=== PATIENT | male | born 1955 | race Caucasian/White ===

== ENCOUNTER 2023-07-19 09:20 | Outpatient (OUT) | payer BC, SELFPAY ==
[2023-07-19 11:16] LABS: Prostate Specific Antigen Scrn 2.01 ng/mL (<=4.00)
== END 2023-07-19 09:21 | disposition home or self-care (01) ==
LOC: LAB 09:20
PROVIDERS: PCP Internal Medicine; Visit Provider Internal Medicine
DX: Z12.5 Encounter for screening for malignant neoplasm of prostate (principal)
CPT/HCPCS: 36415; G0103